=== PATIENT | male | born 1940 | race Caucasian/White ===

== ENCOUNTER 2019-05-05 16:19 | Emergency (ER) | payer MEDICARE, BC ==
--- NOTE | 2019-05-05 16:47 | ER Document Report ---
ED Medical Screen (RME) - General Chief Complaint: Dizziness Stated Complaint: ABNORMAL LABS Time Seen by Provider: 05/05/19 16:37 Primary Care Provider: DAKOTA RODRIGUEZ MD [Primary Care Provider] - Follow up as needed Notes: Patient is a 78-year-old male with a history of peripheral vascular disease and stroke who presents to the emergency department with a chief complaint of dizziness. Patient reports that over the past month he has had 2 episodes of dizziness lasting about 15 minutes each. Patient reports this morning around 9:25 AM he was standing upright when he felt very off balance and dizzy. Pat hamiltonnt concerned because this episode lasted 1 hour. Patient reports at that time he did develop nausea and dry heaving. Patient reports he was seen at Dr. Gonzalez's office earlier and was sent here for an evaluation. Patient denies use of blood thinners but does take an baby aspirin when he can remember. Patient reports he is not currently having any symptoms. TRAVEL OUTSIDE OF THE [place] IN LAST 30 DAYS: No Past Medical History - Social History Chew tobacco use (# tins/day): No Frequency of alcohol use: Rare Drug Abuse: None - Past Medical History Cardiac Medical History: Denies: Hx Heart Attack, Hx Hypertension - BORDERLINE-BEING OBSERVED Pulmonary Medical History: Denies: Hx Asthma Neurological Medical History: Denies: Hx Cerebrovascular Accident, Hx Seizures GI Medical History: Reports: Hx Ulcer - AT AGE 19 OR 29. Denies: Hx Hepatitis, Hx Hiatal Hernia Infectious Medical History: Denies: Hx Hepatitis Past Surgical History: Denies: Hx Open Heart Surgery, Hx Pacemaker Physical Exam - Vital signs Vitals: Temp Pulse Resp BP Pulse Ox 97.4 F 71 18 163/62 H 98 05/05/19 16:26 05/05/19 16:26 05/05/19 16:26 05/05/19 16:26 05/05/19 16:26 - Cardiovascular Rhythm: Regular Heart sounds: Normal auscultation, S1 appreciated, S2 appreciated Course - Re-evaluation Re-evalutation: 05/05/19 16:47 I have greeted and performed a rapid initial assessment of this patient. A comprehensive ED assessment and evaluation of the patient, analysis of test results and completion of the medical decision making process will be conducted by additional ED providers. - Vital Signs Vital signs: Temp Pulse Resp BP Pulse Ox 97.4 F 71 18 163/62 H 98 12/06/19 16:43 05/05/19 16:26 05/05/19 16:43 05/05/19 16:26 05/05/19 16:43 Doctor's Discharge - Discharge Referrals: DAKOTA RODRIGUEZ MD [Primary Care Provider] - Follow up as needed
[2019-05-05 17:13] LABS: ABSOLUTE EOSINOPHILS # (AUTO) 0.1 10^3/uL (0.0-0.6); ABSOLUTE LYMPHOCYTES (AUTO) 1.5 10^3/uL (0.5-4.7); ABSOLUTE MONOCYTES (AUTO) 0.5 10^3/uL (0.1-1.4); ABSOLUTE NEUT (AUTO) 4.8 10^3/uL (1.7-8.2); BASOPHILS % (AUTO) 0.7 % (0-2); EOSINOPHILS % (AUTO) 0.8 % (0-6); HEMATOCRIT 41.2 % (37.9-51.0); HEMOGLOBIN 14.3 g/dL (13.5-17.0); LYMPHOCYTES % (AUTO) 21.7 % (13-45); MEAN CORPUSCULAR HEMOGLOBIN 32.2 pg (27.0-33.4); MEAN CORPUSCULAR HGB CONC 34.7 g/dL (32.0-36.0); MEAN CORPUSCULAR VOLUME 93 fl (80-97); MONOCYTES % (AUTO) 7.9 % (3-13); PLATELET COUNT 188 10^3/uL (150-450); RED BLOOD COUNT 4.44 10^6/uL (4.35-5.55); RED CELL DISTRIBUTION WIDTH 13.9 % (11.5-14.0); SEGMENTED NEUTROPHILS % (AUTO) 68.9 % (42-78); TOTAL CELLS COUNTED % (AUTO) 100 %; WHITE BLOOD COUNT 6.9 10^3/uL (4.0-10.5)
[2019-05-05 17:16] LABS: APPEARANCE,URINE CLEAR; BILIRUBIN,URINE NEGATIVE (NEGATIVE); COLOR,URINE YELLOW; GLUCOSE, URINE NEGATIVE (NEGATIVE); KETONES,URINE NEGATIVE (NEGATIVE); LEUKOCYTE ESTERASE,URINE NEGATIVE (NEGATIVE); NITRITE,URINE NEGATIVE (NEGATIVE); PROTEIN,URINE NEGATIVE (NEGATIVE); URINE SPECIFIC GRAVITY 1.011; UROBILINOGEN,URINE NEGATIVE mg/dL (<2.0)
[2019-05-05 17:36] LABS: ALBUMIN 4.8 g/dL (3.5-5.0); ALKALINE PHOSPHATASE 63 U/L (38-126); ANION GAP 10 (5-19); ASPARTATE AMINO TRANSFERASE 22 U/L (17-59); BILIRUBIN,DIRECT 0.1 mg/dL (0.0-0.4); BILIRUBIN,TOTAL 0.5 mg/dL (0.2-1.3); BLOOD UREA NITROGEN 16 mg/dL (7-20); CALCIUM 9.8 mg/dL (8.4-10.2); CARBON DIOXIDE 30 mmol/L (22-30); CHLORIDE 99 mmol/L (98-107); GLUCOSE 117 mg/dL (75-110); TOTAL PROTEIN 8.6 g/dL (6.3-8.2)
--- NOTE | 2019-05-05 17:38 | RADIOLOGY REPORT (SQ) ---
EXAM DESCRIPTION: CHEST 2 VIEWS COMPLETED DATE/TIME: 05/05/2019 5:13 pm REASON FOR STUDY: cough COMPARISON: None. TECHNIQUE: Frontal and lateral radiographic views of the chest acquired. NUMBER OF VIEWS: Two view. LIMITATIONS: None. FINDINGS: LUNGS AND PLEURA: No pneumothorax. Chronic interstitial changes -emphysema. No consolida tion. Trace left pleural effusion versus subpleural scarring. MEDIASTINUM AND HILAR STRUCTURES: Age-appropriate. HEART AND VASCULAR STRUCTURES: Normal. BONES: No acute findings. HARDWARE: None in the chest. OTHER: No other significant finding. IMPRESSION: Chronic interstitial changes -emphysema. No consolidation. Trace left pleural effusio n versus subpleural scarring. TECHNICAL DOCUMENTATION: JOB ID: [id number] [place]-72 2010 [employer]- All Rights Reserved Reading location - IP/workstation name: [email or web address]
--- NOTE | 2019-05-05 17:39 | RADIOLOGY REPORT (SQ) ---
EXAM DESCRIPTION: CT HEAD WITHOUT COMPLETED DATE/TIME: 05/05/2019 5:28 pm REASON FOR STUDY: dizziness COMPARISON: None. TECHNIQUE: Axial images acquired through the brain without intravenous contrast. Images reviewed wi th bone, brain and subdural windows. Additional sagittal and coronal reconstructions were generated. Images stored on PACS. All CT scanners at this facility use dose modulation, iterative reconstruction, and/or weight based d osing when appropriate to reduce radiation dose to as low as reasonably achievable (ALARA). [facility]: Dose Right [facility]: CareDose [facility]: Dose Right [facility]: Teradose 4D [facility]: Caperfly RADIATION DOSE: CT Rad equipment meets quality standard of care and radiation dose reduction techniq ues were employed. CTDIvol: 53.2 mGy. DLP: 1044 mGy-cm. mGy. LIMITATIONS: None. FINDINGS: VENTRICLES: Normal size and contour. CEREBRUM: 2 cm pituitary mass. No hemorrhage. No midline shift. Small left lacunar infarctions. N o evidence for acute infarction. Few scattered areas of low density in the white matter most likely c hronic small vessel ischemic changes. CEREBELLUM: No masses. No hemorrhage. No alteration of density. No evidence for acute infarction. EXTRAAXIAL SPACES: No fluid collections. No masses. ORBITS AND GLOBE: No intra- or extraconal masses. Normal contour of globe without masses. CALVARIUM: No fracture. PARANASAL SINUSES: No fluid or mucosal thickening. SOFT TISSUES: No mass or hematoma. OTHER: No other significant finding. IMPRESSION: 1. 2 cm pituitary mass. 2. Chronic microvascular ischemia. EVIDENCE OF ACUTE STROKE: NO. COMMENT: Quality ID # [id number]: Final reports with documentation of one or more dose reduction techniques (e.g., Automated exposure control, adjustment of the mA and/or kV according to patient size, use of iterative reconstruction technique) TECHNICAL DOCUMENTATION: JOB ID: [id number] [employer]- All Rights Reserved Reading location - IP/workstation name: [email or web address]
--- NOTE | 2019-05-05 20:34 | ER Document Report ---
ED General - General Chief Complaint: Dizziness Stated Complaint: ABNORMAL LABS Time Seen by Provider: 05/05/19 16:37 Primary Care Provider: DAKOTA RODRIGUEZ MD [NO LOCAL MD] - Follow up as needed Mode of Arrival: Ambulatory Information source: Patient, Relative TRAVEL OUTSIDE OF THE [place] IN LAST 30 DAYS: No - HPI Onset: Other - 3 times in the last month Quality of pain: No pain Severity: Mild Associated symptoms: Headache, Nausea Exacerbated by: Other - head movements Relieved by: Denies Similar symptoms previously: No Recently seen / treated by doctor: No Notes: 78 year old male with a history of PVD, prior lacunar strokes, who smokes sent to the ER for dizziness. The patient had 2 dizzy spells in the last month (they lasted 10 minutes) and he had a dizzy spell today which lasted about an hour. The dizzy spell today had associated nausea. The patient says when the dizziness happens he needs to hold onto a wall so not to fall over. The patient does not feel like he is going to pass out and he denies chest pain or SOB with these event. The patient says he currently has a head cold and he feels congested as well. Past Medical History - General Information source: Patient - Social History Smoking Status: Current Every Day Smoker Chew tobacco use (# tins/day): No Frequency of alcohol use: Rare Drug Abuse: None Family History: Reviewed & Not Pertinent Patient has suicidal ideation: No Patient has homicidal ideation: No - Past Medical History Cardiac Medical History: Reports: Hx Peripheral Vascular Disease Denies: Hx Heart Attack, Hx Hypertension - BORDERLINE-BEING OBSERVED Pulmonary Medical History: Reports: Hx Pneumonia Denies: Hx Asthma EENT Medical History: Reports: None Neurological Medical History: Reports: Hx Cerebrovascular Accident. Denies: Hx Seizures Endocrine Medical History: Reports: None Renal/ Medical History: Reports: None Malignancy Medical History: Reports None GI Medical History: Reports: Hx Ulcer - AT AGE 19 OR 29. Denies: Hx Hepatitis, Hx Hiatal Hernia Musculoskeletal Medical History: Reports None Skin Medical History: Reports None Psychiatric Medical History: Reports: None Traumatic Medical History: Reports: None Infectious Medical History: Reports: None. Denies: Hx Hepatitis Past Surgical History: Reports: Hx Oral Surgery, Hx Orthopedic Surgery. Denies: Hx Open Heart Surgery, Hx Pacemaker Review of Systems - Review of Systems Constitutional: No symptoms reported EENT: No symptoms reported Cardiovascular: No symptoms reported Respiratory: No symptoms reported Gastrointestinal: Nausea Genitourinary: No symptoms reported Male Genitourinary: No symptoms reported Musculoskeletal: No symptoms reported Skin: No symptoms reported Hematologic/Lymphatic: No symptoms reported Neurological/Psychological: Other - Dizziness Physical Exam - Vital signs Vitals: Temp Pulse Resp BP Pulse Ox 97.4 F 71 18 163/62 H 98 05/05/19 16:26 05/05/19 16:26 05/05/19 16:26 05/05/19 16:26 05/05/19 16:26 - Notes Notes: GENERAL: Well-appearing, well-nourished and in no acute distress. HEAD: Atraumatic, normocephalic. EYES: Pupils equal round and reactive to light, extraocular movements intact, sclera anicteric, conjunctiva are normal. ENT: Nares patent, oropharynx clear without exudates. Moist mucous membranes. NECK: Normal range of motion, supple without lymphadenopathy or JVD. LUNGS: Breath sounds clear to auscultation bilaterally and equal. No wheezes rales or rhonchi. HEART: Regular rate and rhythm without murmurs, rubs or gallops. ABDOMEN: Soft, nontender, normoactive bowel sounds. No guarding, no rebound. No masses appreciated. EXTREMITIES: Normal range of motion, no pitting or edema. No clubbing or cyanosis. NEUROLOGICAL: Cranial nerves II through XII grossly intact. Normal speech, normal gait. No finer to nose or heal to daniels ataxia. No nystagmus. Unable to reproduce dizziness with rapid head movements. PSYCH: Normal mood, normal affect. SKIN: Warm, Dry, normal turgor, no rashes or lesions noted.. Course - Re-evaluation Re-evalutation: 05/05/19 20:42 The patient has had 3 dizzy spells in the last month. His dizzy spell today lasted an hour and was associated with nausea. His dizzy spells in the past only lasted 10 min and had no associated symptoms. The patient has PVD and prior lacunar strokes. Patient has no neuro findings in the ER now. Patient's CT shows 2cm pituitary mass and lacunar infarcts but no acute process. I spoke with the PCP group the patient follows up with and plan is for outpatient work up of his pituitary mass [facility]. Posterior circulation stenosis could also be a culprit but seems less likely given the patient's history. - Vital Signs Vital signs: Temp Pulse Resp BP Pulse Ox 97.6 F 69 16 157/71 H 99 05/05/19 21:04 05/05/19 21:04 05/05/19 21:04 05/05/19 21:04 05/05/19 21:04 - Laboratory Result Diagrams: 05/05/19 16:57 05/05/19 16:57 Laboratory results interpreted by me: 05/05/19 16:57 Creatinine 1.26 H Est GFR (MDRD) Non-Af 55 L Glucose 117 H Total Protein 8.6 H Discharge - Discharge Clinical Impression: Vertigo Condition: Stable Disposition: HOME, SELF-CARE Instructions: Dizziness ([facility]) Additional Instructions: Follow up with your primary care doctor and tell him you were in the ER and had blood work, a UA, chest xray, and head CT. Your head CT showed a 2cm pituitary mass which will likely need further work up. Your dizzy spells sound like vertigo. If it happens again, try using the prescribed Meclizine. Return to an ER for persistent dizziness or if worse in anyway. Prescriptions: Meclizine HCl [Antivert 25 mg Tablet] 25 mg PO TID PRN #21 tablet PRN Reason: Azithromycin [Zithromax 250 mg Tablet] 250 mg PO ASDIR PRN #6 tablet PRN Reason: Referrals: DAKOTA RODRIGUEZ MD [NO LOCAL MD] - Follow up as needed
[2019-05-05 20:42] VITALS: BP 157/71
--- NOTE | 2019-05-05 23:56 | EKG REPORT ---
SEVERITY:- ABNORMAL ECG - SINUS RHYTHM NONSPECIFIC INTRAVENTRICULAR CONDUCTION DELAY BORDERLINE ST DEPRESSION, DIFFUSE LEADS : Confirmed by: Cris Cummins MD 05-May-2019 23:56:31
== END 2019-05-05 21:06 | disposition home or self-care (01) ==
LOC: ER 16:19
DX: R42 Dizziness and giddiness (principal); R51 Headache; R11.0 Nausea; F17.200 Nicotine dependence, unspecified, uncomplicated; Z86.73 Personal history of transient ischemic attack (TIA), and cerebral infarction without residual deficits
CPT/HCPCS: 36415; 70450; 71046; 80053; 81001; 84484; 85025; 93005; 93010; 99284

== ENCOUNTER → 2019-05-13 | Outpatient (CLI) | payer MEDICARE, BC ==
--- NOTE | 2019-05-13 14:39 | RADIOLOGY REPORT (SQ) ---
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 Thin sections through the pituitary fossa pre and post contrast. Images stored on PACS. CONTRAST TYPE AND DOSE: 15 mL Dotarem. RENAL FUNCTION: Not indicated. ACR Type II contrast agent associated with few, if any, unconfounded cases of NSF LIMITATIONS: None. FINDINGS: ANATOMY: No anomalies. Normal vascular flow voids. CSF SPACES: Atrophy-induced prominence of CSF spaces and ventricles. PITUITARY FOSSA: Large mass projects dorsally at of the sella. Mass effect on the optic chiasm. No overt encasement of the carotid arteries. Mass measures up to 2.2 cm craniocaudal. 2.6 cm transvers e. 2.1 cm AP. CEREBRUM: Small vessel disease with old left periventricular infarct. POSTERIOR FOSSA: Mild right mastoid fluid. Otherwise unremarkable. ORBITS: No masses. Globes normal. PARANASAL SINUSES: Maxillary mucosal thickening. Minimal anterior and frontal mucosal thickening. N o fluid. OTHER: No other significant finding. IMPRESSION: 1. 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 Lateral extension darvin aterally without carotid encasement. 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 2. Chronic atrophy and small vessel disease. TECHNICAL DOCUMENTATION: JOB ID: [id number]- All Rights Reserved Reading location - IP/workstation name: [email or web address]
== END ==
LOC: RAD 11:51
PROVIDERS: ATTEND Physician Assistant
DX: D49.7 Neoplasm of unspecified behavior of endocrine glands and other parts of nervous system (principal)
CPT/HCPCS: 70553; A9576

== ENCOUNTER → 2019-08-09 | Outpatient (CLI) | payer MEDICARE, BC ==
--- NOTE | 2019-08-09 16:08 | RADIOLOGY REPORT (SQ) ---
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 TECHNIQUE: Grayscale ultrasound, Doppler velocity and spectra, and color Doppler images acquired of the extra-cranial carotid and vertebral arteries. Images stored on PACS. LIMITATIONS: None. FINDINGS: RIGHT CAROTID CCA Velocities: Within normal limits. ICA Velocities Peak systolic 80 cm/s. End diastolic 26 cm/s. Proximal ICA/CCA peak systolic ratio 1.4. Calcified plaque in the carotid bulb and proximal ICA. LEFT CAROTID CCA Velocities: Within normal limits. ICA Velocities Peak systolic 133 cm/s. End diastolic 39 cm/s. Proximal ICA/CCA peak systolic ratio 2.0. There is calcified plaque in the carotid bulb and proximal ICA. VERTEBRAL ARTERIES: Antegrade flow. Normal waveforms. SUBCLAVIAN ARTERIES: No finding. OTHER: No other significant finding. IMPRESSION: 1. Calcified plaque on the right but no hemodynamically significant stenosis. 2. Calcified plaque in the left common carotid artery and proximal ICA. Velocities correspond to 50 to 69% stenosis. Grayscale images suggest closer to 50%. COMMENT: Quality ID #[id number]: Velocity criteria are extrapolated from the diameter data as defined by t he Society of Radiologists in Ultrasound Consensus Conference. Radiology 2003: 229; 340-346. TECHNICAL DOCUMENTATION: JOB ID: [id number] 2010 [employer]- All Rights Reserved Reading location - IP/workstation name: [email or web address]
== END ==
LOC: SP 14:39
PROVIDERS: ATTEND Ophthalmology
DX: H35.89 Other specified retinal disorders (principal)
CPT/HCPCS: 93880